=== PATIENT | male | born 1930 | race Caucasian/White ===

== ENCOUNTER → 2021-06-20 | Outpatient (CLI) | payer MEDICARE, OTHER ==
--- NOTE | 2021-06-20 14:29 | KCIC ---
EXAM: Renal sonogram. HISTORY: Renal lesion on CT. TECHNIQUE: Sonographic imaging of the kidneys and bladder was performed. COMPARISON: CT dated 03/19/2021. FINDINGS: The right kidney measures 12.1 cm [id number] and the left kidney measures 11.0 cm pole-to -pole. There are multiple simple appearing right renal cysts, the largest of which is seen within the superior right kidney measuring 8.3 cm. There is left renal cortical thinning. There is no hydroneph rosis. The bladder is empty. IMPRESSION: 1. Multiple simple appearing right renal cysts measuring up to 8.3 cm. No convincing solid renal lesi on is seen. 2. 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 3. Note is made that tiny nonobstructing renal stones demonstrated on the prior study are not visible sonographically. There is no hydronephrosis. Electronically signed by: Teresa Rios MD (06/20/2021 2:26 PM) [id number]
== END ==
LOC: KCIC US 12:36
PROVIDERS: ATTEND Specialist
DX: N26.1 Atrophy of kidney (terminal) (principal); N28.89 Other specified disorders of kidney and ureter
CPT/HCPCS: 76770